=== PATIENT | male | born 1950 | race Hispanic/Latino ===

== ENCOUNTER 2017-03-05 05:00 | Inpatient (IN) | payer MEDICARE, MEDICAID ==
[2017-03-05 05:16] VITALS: BMI 22.2
--- NOTE | 2017-03-05 05:32 | ED PDOC ---
Arrival/HPI - General Chief Complaint: Trauma Time Seen by Provider: 03/05/17 05:10 Historian: Patient, EMS - History of Present Illness Narrative History of Present Illness (Text): 03/05/17 05:30 Mikel Love is a 67 year old male, whose past medical history includes rheumatoid arthritis, CAD s/p stents, CO, COPD, and atrial fibrillation, who presents to the emergency department brought in by EMS s/p mechanical fall. Patient states he was walking home from the bar when he slipped and fell, injuring his right hip tonight. Patient notes he has a history of bilateral hip replacement in the past. Patient states he is unable to move his right leg at the hip. Patient also sustained abrasions to hands and knees. Patient denies any head injury, loss of consciousness, fever, chills, chest pain, shortness of breath, abdominal pain, nausea, vomiting, diarrhea, urinary symptoms, back pain , neck pain, headache, dizziness, or any other complaints. PMD: Dr. Erika Rojas Time/Duration: Other (tonight) Symptom Onset: Sudden Symptom Course: Unchanged Activities at Onset: Light Context: Walking, Slipped Past Medical History - Provider Review Nursing Documentation Reviewed: Yes - Infectious Disease Hx of Infectious Diseases: None - Musculoskeletal/Rheumatological Hx Falls: Yes Hx Rheumatoid Arthritis: Yes - Psychiatric Hx Substance Use: No - Surgical History Hx Appendectomy: Yes Hx Joint Replacement: Yes (B/L hips) Other/Comment: Back sx - Anesthesia Hx Anesthesia: Yes Hx Anesthesia Reactions: No Hx Malignant Hyperthermia: No - Suicidal Assessment Feels Threatened In Home Enviroment: No Family/Social History - Physician Review Nursing Documentation Reviewed: Yes Family/Social History: No Known Family HX Smoking Status: Heavy Smoker > 10 Cigarettes Daily Hx Alcohol Use: Yes Frequency of alcohol use: Daily Hx Substance Use: No Allergies/Home Meds Allergies/Adverse Reactions: Allergies No Known Allergies Allergy (Verified 03/05/17 05:21) Home Medications: Home Meds Medication Instructions Recorded Confirmed Methotrexate [Methotrexate] 20 mg PO WED 10/17/15 10/17/15 Review of Systems - Physician Review All systems were reviewed & negative as marked: Yes - Review of Systems Constitutional: Normal. absent: Fevers Eyes: Normal ENT: Normal Respiratory: Normal. absent: SOB, Cough Cardiovascular: Normal. absent: Chest Pain Gastrointestinal: Normal. absent: Abdominal Pain, Diarrhea, Nausea, Vomiting Genitourinary Male: Normal. absent: Dysuria, Frequency, Hematuria, Urinary Output Changes Musculoskeletal: Normal. absent: Back Pain, Neck Pain Skin: Normal. absent: Rash Neurological: Normal. absent: Headache, Dizziness Endocrine: Normal Hemo/Lymphatic: Normal Psychiatric: Normal Physical Exam Vital Signs Reviewed: Yes Vital Signs Temp Pulse Resp BP Pulse Ox 03/05/17 15:00 98 F 96 H 20 132/71 98 03/05/17 13:00 98.2 F 96 H 19 125/75 96 03/05/17 12:56 98 F 100 H 20 127/73 03/05/17 09:27 98 F 100 H 20 127/73 98 03/05/17 07:22 98 F 99 H 20 115/65 96 03/05/17 05:41 100 H 16 116/74 95 03/05/17 05:28 97.8 F Temperature: Afebrile Blood Pressure: Normal Pulse: Regular Respiratory Rate: Normal Appearance: Positive for: Well-Appearing, Non-Toxic, Comfortable Pain Distress: None Mental Status: Positive for: Alert and Oriented X 3 - Systems Exam Head: Present: Atraumatic, Normocephalic Pupils: Present: PERRL Extroacular Muscles: Present: EOMI Conjunctiva: Present: Normal Mouth: Present: Moist Mucous Membranes Neck: Present: Normal Range of Motion Respiratory/Chest: Present: Clear to Auscultation, Good Air Exchange. No: Respiratory Distress, Accessory Muscle Use Cardiovascular: Present: Regular Rate and Rhythm, Normal S1, S2. No: Murmurs Abdomen: Present: Normal Bowel Sounds. No: Tenderness, Distention, Peritoneal Signs Upper Extremity: Present: Normal ROM, NORMAL PULSES, Neurovascularly Intact, Capillary Refill < 2s, Other (Superficial abrasions to hands and knees). No: Cyanosis, Edema, Tenderness, Swelling, Erythema, Temperature Abnormalties, Deformity Lower Extremity: Present: NORMAL PULSES, Tenderness (Discomfort at any attempt at right hip flexion). No: Edema Neurological: Present: GCS=15, CN II-XII Intact, Speech Normal Skin: Present: Warm, Dry, Normal Color. No: Rashes Psychiatric: Present: Alert, Oriented x 3, Normal Insight, Normal Concentration Medical Decision Making ED Course and Treatment: 03/05/17 05:30 Impression: 67 year old male presents s/p mechanical fall, unable to move right hip tonight. Plan: -- EKG -- XR Hips -- Labs -- IV fluids -- Reassess and disposition Prior Visits: Notes and results from previous visits were reviewed. Progress Notes: Reviewed EKG, sinus tachycardia at 103 bpm. Inferior infarct. Non-specific ST/T wave changes. Unchanged from previous. 03/05/17 07:00 Case was d/w covering .Accepts to her service.Requested orthopedist on consult. - Lab Interpretations Lab Results: 03/05/17 05:35 03/05/17 05:35 Lab Results 03/05/17 05:35: WBC 19.9 H D, RBC 4.68, Hgb 16.6, Hct 46.4, MCV 99.1, MCH 35.5 H , MCHC 35.8, RDW 14.5, Plt Count 347, MPV 9.0, PT 11.4, INR 1.06, APTT 29.2, Sodium 135, Potassium 4.2, Chloride 100, Carbon Dioxide 19 L, Anion Gap 20, BUN 8, Creatinine 0.7, Est GFR ( Amer) > 60, Est GFR (Non-Af Amer) > 60, Random Glucose 120 H, Calcium 8.6, Total Bilirubin 0.4, AST 34, ALT 28, Alkaline Phosphatase 139 H, Total Protein 8.3, Albumin 4.3, Globulin 4.1, Albumin/Globulin Ratio 1.0 L, Alcohol, Quantitative 269 H I have reviewed the lab results: Yes - RAD Interpretation Narrative RAD Interpretations (Text): 03/05/17 07:00 Hip/pelvis-No acute process Radiology Orders: 03/05/17 05:36 Hip Bi with Pelvis Fall Protocol [HIP MIN 2V W/ PELVIS QASIM] [RAD] Stat Glass Technologist: ED Physician - Medication Orders Current Medication Orders: Famotidine (Pepcid) 20 mg IVP DAILY ADELA Last Admin: 03/05/17 11:41 Dose: 20 MG IVP Administration Document 03/05/17 11:41 GMI (Rec: 03/05/17 11:42 GMI [id number]) Charges for Administration # of IVP Administrations 1 Sodium Chloride (Sodium Chloride 0.9%) 1,000 mls @ 100 mls/hr IV .Q10H ADELA Last Admin: 03/05/17 07:03 Dose: 100 MLS/HR eMAR Start Stop Document 03/05/17 07:03 RE (Rec: 03/05/17 07:03 RE [facility] [place] Intravenous Solution Start Date 03/04/17 Start Time 05:30 End Date 03/05/17 End time 09:38 Total Infusion Time 1688 Multivitamins/Vitamin C 10 ml/Thiamine HCl 100 mg/ Folic Acid 1 mg/ Dextrose 1, 011.2 mls @ 100 mls/hr IV .Q10H7M ONE Stop: 03/05/17 18:35 Last Admin: 03/05/17 09:38 Dose: 100 MLS/HR eMAR Start Stop Document 03/05/17 09:38 GMI (Rec: 03/05/17 09:39 [id number]) Intravenous Solution Start Date 03/05/17 Start Time 09:39 Morphine Sulfate (Morphine) 2 mg IVP Q4 PRN PRN Reason: Pain, moderate (4-7) Last Admin: 03/05/17 15:57 Dose: 2 MG MAR Pain Assessment Document 03/05/17 15:57 RECYCLABLE MATERIALS COLLECTOR (Rec: 03/05/17 15:57 RECYCLABLE MATERIALS COLLECTOR [facility] [id number] Pain Reassessment Is this a pain reassessment? Yes Sleep Is patient sleeping during reassessment? No Presence of Pain Presence of Pain Yes Pain Scale Used Pain Scale Used Numeric Location Left, Right or Bilateral Right Pain Location Body Site Hip Description Description Acute Intensity of Pain at present 8 IVP Administration Document 03/05/17 15:57 RECYCLABLE MATERIALS COLLECTOR (Rec: 03/05/17 15:57 RECYCLABLE MATERIALS COLLECTOR [facility] [id number] Charges for Administration # of IVP Administrations 1 Sennosides (Senokot Tab) 8.6 mg PO DAILY ADELA Last Admin: 03/05/17 11:24 Dose: Not Given Non-Admin Reason: Patient Refused Discontinued Medications Docusate Sodium (Colace) 100 mg PO STAT STA Stop: 03/05/17 08:32 Last Admin: 03/05/17 09:43 Dose: 100 MG Stool Assessment Document 03/05/17 09:43 GMI (Rec: 03/05/17 09:43 GMI [id number]) Pattern Bowel Pattern Normal Bowel Movement Frequency Daily Description Stool Characteristics Soft Formed - Scribe Statement The provider has reviewed the documentation as recorded by the Jose Escalante Provider Attestation: All medical record entries made by the Prafulibe were at my direction and personally dictated by me. I have reviewed the chart and agree that the record accurately reflects my personal performance of the history, physical exam, medical decision making, and the department course for this patient. I have also personally directed, reviewed, and agree with the discharge instructions and disposition. Disposition/Present on Arrival - Present on Arrival Any Indicators Present on Arrival: No History of DVT/PE: No History of Uncontrolled Diabetes: No Urinary Catheter: No History of Decub. Ulcer: No History Surgical Site Infection Following: None - Disposition Have Diagnosis and Disposition been Completed?: No Diagnosis: Fall, Injury of right hip, Alcohol intoxication, Inability to ambulate due to hip Disposition: HOSPITALIZED Disposition Time: 07:00 Patient Plan: Observation Patient Problems: Current Active Problems Problem Status Diagnosed Alcohol intoxication Acute Fall Acute Inability to ambulate due to hip Acute Injury of right hip Acute Condition: STABLE
[2017-03-05 05:51] LABS: HEMATOCRIT 46.4 % (42.0-52.0); MEAN CELL VOLUME 99.1 fL (80.0-105.0); MEAN CORPUSCULAR HEMOGLOBIN 35.5 pg (25.0-35.0); MEAN CORPUSCULAR HGB CONC 35.8 g/dl (31.0-37.0); RED CELL DISTRIBUTION WIDTH 14.5 % (11.5-14.5); WHITE BLOOD COUNT 19.9 10^3/ul (4.5-11.0)
[2017-03-05 06:03] LABS: ALKALINE PHOSPHATASE 139 U/L (38-133); ALT/SGPT 28 U/L (7-56); AST/SGOT 34 U/L (15-59); BILIRUBIN,TOTAL 0.4 mg/dL (0.2-1.3); BLOOD UREA NITROGEN 8 mg/dL (7-21); CALCIUM 8.6 mg/dL (8.4-10.5); CARBON DIOXIDE 19 mmol/L (21-33); CHLORIDE 100 mmol/L (98-107); GFR AFRICAN-AMERICAN > 60; GLUCOSE,RANDOM 120 mg/dL (70-110); POTASSIUM 4.2 mmol/L (3.6-5.0); SODIUM 135 mmol/L (132-148); TOTAL PROTEIN 8.3 g/dL (5.8-8.3)
[2017-03-05 06:04] LABS: INR 1.06 (0.93-1.08); PARTIAL THROMBOPLASTIN TIME 29.2 Seconds (23.7-30.8)
[2017-03-05] MEDS: Sodium Chloride 0.9% 1,000 ML IV SCH (07:03)
[2017-03-05] MEDS ORDERED: Multivitamin (MVI) 10 ML, Thiamine 100 MG, Folic Acid 1 MG in Dextrose 5% In Water 1,00... IV ONE (08:29)
--- NOTE | 2017-03-05 08:57 | RAD ---
PROCEDURE: Pelvis and right hip HISTORY: right hip injury COMPARISON: TECHNIQUE: Three views FINDINGS: Bilateral hip prostheses are seen in satisfactory alignment. There is no fracture or loosening. IMPRESSION: Negative study
[2017-03-05] MEDS: Morphine 2 mg/ml ISec IVP PRN ×3 (09:44→22:23)
--- NOTE | 2017-03-05 12:14 | CARD ---
APPROVED REPORT EKG Measurement Heart [id number] <Conclusion> Sinus tachycardia Inferior infarct, age undetermined Abnormal ECG
--- NOTE | 2017-03-05 23:47 | CP.PCM.HP ---
History of Present Illness - History of Present Illness History of Present Illness: Mr. Love is a 67 old male admitted post fall. He is complaining of right sided hip pain. X ray did not show any fracture. He was found to be ontoxicated with ETOH. Blood Alcohol level was high in ER. he has reheumatoid arthritis, takes methotrexate. Stable condition. H/O CAD, NH, stable. he has leukocytosis with elevated WC 19k. He has high WC since 2015. Bilateral hip replacement, pain right hip. Present on Admission - Present on Admission Any Indicators Present on Admission: No Review of Systems - Constitutional Constitutional: Fatigue, Frequent Falls, Weakness - EENT Eyes: absent: As Per HPI, Blind Spots, Blurred Vision, Change in Vision, Decreased Night Vision, Diplopia, Discharge, Dry Eye, Exophthalmos, Floaters, Irritation, Itchy Eyes, Loss of Peripheral Vision, Pain, Photophobia, Requires Corrective Lenses, Sees Flashes, Spots in Vision, Tunnel Vision, Other Visual Disturbances, Loss of Vision, Other Ears: absent: As Per HPI, Decreased Hearing, Ear Discharge, Ear Pain, Tinnitus, Abnormal Hearing, Disequilibrium, Dizziness, Other Nose/Mouth/Throat: absent: As Per HPI, Epistaxis, Nasal Congestion, Nasal Discharge, Nasal Obstruction, Nasal Trauma, Nose Pain, Post Nasal Drip, Sinus Pain, Sinus Pressure, Bleeding Gums, Change in Voice, Dental Pain, Dry Mouth, Dysphagia, Halitosis, Hoarsness, Lip Swelling, Mouth Lesions, Mouth Pain, Odynophagia, Sore Throat, Throat Swelling, Tongue Swelling, Facial Pain, Neck Pain, Neck Mass, Other - Cardiovascular Cardiovascular: As Per HPI - Respiratory Respiratory: absent: As Per HPI, Cough, Dyspnea, Hemoptysis, Dyspnea on Exertion , Wheezing, Snoring, Stridor, Pain on Inspiration, Chest Congestion, Excessive Mucous Production, Change in Mucous Color, Pain with Coughing, Other - Gastrointestinal Gastrointestinal: absent: As Per HPI, Abdominal Pain, Belching, Bloating, Change in Bowel Habits, Change in Stool Character, Coffee Ground Emesis, Constipation, Cramping, Diarrhea, Dyspepsia, Dysphagia, Early Satiety, Excessive Flatus, Fecal Incontinence, Heartburn, Hematemesis, Hematochezia, Loose Stools, Melena, Nausea, Odynophagia, Temesmus, Vomiting, Other - Genitourinary Genitourinary: absent: As Per HPI, Change in Urinary Stream, Difficulty Urinating, Dysuria, Flank Pain, Hematuria, Pyuria, Nocturia, Urinary Incontinence, Urinary Frequency, Urinary Hesitance, Urinary Urgency, Voiding Freq/Small Amts, Freq UTI, Hx Renal/Bladder Calculi, Hx /Renal Surgery, Bladder Distension, Other - Musculoskeletal Musculoskeletal: absent: As Per HPI, Abnormal Gait, Arthralgias, Atrophy, Back Pain, Deformity, Joint Swelling, Limited Range of Motion, Loss of Height, Muscle Cramps, Muscle Weakness, Myalgias, Neck Pain, Numbness, Radiating Pain into Limb, Stiffness, Tingling, Other - Integumentary Integumentary: absent: As Per HPI, Acne, Alopecia, Bleeding Lesions, Change in Hair, Change in Nails, Change in Pigmentation, Changing Lesions, Dry Skin, Erythema, Furuncle, Hirsutism, Lesions, New Lesions, Non-Healing Lesions, Photosensitivity, Pruritus, Rash, Skin Pain, Skin Ulcer, Sores, Striae, Swelling , Unusual Bruising, Wounds, Jaundice, Other - Neurological Neurological: absent: As Per HPI, Abnormal Gait, Abnormal Hearing, Abnormal Movements, Abnormal Speech, Behavioral Changes, Burning Sensations, Confusion, Convulsions, Disequilibrium, Dizziness, Numbness, Focal Weakness, Frequent Falls , Headaches, Lack of Coordination, Loss of Vision, Memory Loss, Paresthesias, Radicular Pain, Restless Legs, Sensory Deficit, Syncope, Tingling, Tremor, Vertigo, Weakness, Other Visual Disturbances, Other - Psychiatric Psychiatric: absent: As Per HPI, Abnormal Sleep Pattern, Anhedonia, Anxiety, Auditory Hallucinations, Behavioral Changes, Change in Appetite, Change in Libido, Confusion, Depression, Difficulty Concentrating, Hallucinations, Homicidal Ideation, Hopelessness, Irritability, Memory Loss, Mood Swings, Panic Attacks, Paranoia, Suicidal Ideation, Visual Hallucinations, Tactile Hallucinations, Other - Endocrine Endocrine: absent: As Per HPI, Change in Body Appearance, Change in Libido, Cold Intolorance, Deepening of Voice, Excessive Sweating, Fatigue, Flushing, Heat Intolorance, Increase in Ring/Shoe/Hat Size, Palpitations, Polydipsia, Polyphagia, Polyuria, Other - Hematologic/Lymphatic Hematologic: As Per HPI Past Patient History - Infectious Disease Hx of Infectious Diseases: None - Past Medical History & Family History Past Medical History?: Yes Past Family History: Reviewed and not pertinent - Past Social History Smoking Status: Smoker Currrent Status Unknown - CARDIAC Hx Cardiac Disorders: Yes Hx Atrial Fibrillation: Yes - PULMONARY Hx Chronic Obstructive Pulmonary Disease (COPD): Yes - MUSCULOSKELETAL/RHEUMATOLOGICAL Hx Falls: Yes Hx Rheumatoid Arthritis: Yes - PSYCHIATRIC Hx Substance Use: No - SURGICAL HISTORY Hx Appendectomy: Yes Hx Joint Replacement: Yes (B/L hips) Other/Comment: Back sx - ANESTHESIA Hx Anesthesia: Yes Hx Anesthesia Reactions: No Hx Malignant Hyperthermia: No Meds Allergies/Adverse Reactions: Allergies Allergy/AdvReac Type Severity Reaction Status Date / Time No Known Allergies Allergy Verified 03/05/17 05:21 Physical Exam - Constitutional Appears: Non-toxic - Head Exam Head Exam: ATRAUMATIC, NORMAL INSPECTION, NORMOCEPHALIC - Eye Exam Eye Exam: Normal appearance Pupil Exam: NORMAL ACCOMODATION - ENT Exam ENT Exam: Mucous Membranes Moist - Neck Exam Neck exam: Positive for: Normal Inspection - Respiratory Exam Respiratory Exam: Clear to Auscultation Bilateral - Cardiovascular Exam Cardiovascular Exam: REGULAR RHYTHM, +S1, +S2 - GI/Abdominal Exam GI & Abdominal Exam: Normal Bowel Sounds, Soft - Extremities Exam Extremities exam: Positive for: normal inspection - Back Exam Back exam: NORMAL INSPECTION - Neurological Exam Neurological exam: Alert, CN II-XII Intact, Normal Gait, Oriented x3 - Psychiatric Exam Psychiatric exam: Normal Affect - Skin Skin Exam: Dry, Normal Color, Warm Results - Vital Signs Recent Vital Signs: Last Vital Signs Temp 98.3 F 03/05/17 18:00 Pulse 78 03/05/17 18:00 Resp 20 03/05/17 18:00 BP 128/73 03/05/17 18:00 Pulse Ox 98 03/05/17 15:00 - Labs Result Diagrams: 03/05/17 05:35 03/05/17 05:35 - Impressions Impression: Meds: methotrexate weekly. Assessment & Plan - Assessment and Plan (Free Text) Assessment: 1. Rt hip injury 2. Leukocytosis 3. ETOH intoxucation 4. CAD 5. Hypertension Plan: Rt. HIp injury. Xray no fracture. ortho consult with Dr. Doherty requested. Pain control with MSO4 2 mg IV Q4 hrs. ETOH intoxication : Banana bag, 1 L at 100 cc/hr. leukocytosis : since 2015 as per records on [place]. He need further evaluation to rule out Chronic leukemia. pepcid 20 mg IV daily. Discussed with the patient. Discussed with ED physician.
[2017-03-06 07:29] LABS: ADD MANUAL DIFF? NO
[2017-03-06 07:37] LABS: BASO # 0.02 K/mm3 (0.0-2.0); BASO % 0.3 % (0.0-3.0); EOS # 0.1 (0.0-0.7); GRAN % 74.9 % (50.0-68.0); HEMATOCRIT 36.4 % (42.0-52.0); LYMPH # 1.1 (1.2-3.4); LYMPH % 14.5 % (22.0-35.0); MEAN CELL VOLUME 97.8 fL (80.0-105.0); MEAN CORPUSCULAR HEMOGLOBIN 33.3 pg (25.0-35.0); MEAN CORPUSCULAR HGB CONC 34.1 g/dl (31.0-37.0); MEAN PLATELET VOLUME 8.8 fl (7.0-11.0); MONO # 0.7 (0.1-0.6); MONO % 9.3 % (1.0-6.0); PLATELET COUNT 263 10^3/uL (120.0-450.0); RED CELL DISTRIBUTION WIDTH 14.5 % (11.5-14.5); WHITE BLOOD COUNT 7.9 10^3/ul (4.5-11.0)
[2017-03-06 07:46] LABS: BLOOD UREA NITROGEN 6 mg/dL (7-21); CALCIUM 7.9 mg/dL (8.4-10.5); CARBON DIOXIDE 24 mmol/L (21-33); CHLORIDE 104 mmol/L (95-110); GFR AFRICAN-AMERICAN > 60; GLUCOSE,RANDOM 89 mg/dL (70-110); POTASSIUM 3.7 mmol/L (3.6-5.0); SODIUM 132 mmol/L (132-148)
[2017-03-06] MEDS: Morphine 2 mg/ml ISec IVP PRN ×3 (07:49→22:21)
--- NOTE | 2017-03-06 08:37 | CON ---
DATE: 03/05/2017 REASON FOR CONSULTATION: Right hip pain. HISTORY OF PRESENT ILLNESS: This is a 67-year-old gentleman who presented status post fall with righ t hip pain. PAST MEDICAL HISTORY: Significant for a right total hip replacement done approximately 3-1/2 years a go. The patient states that he normally ambulates with a cane. He denies any other injuries. He sa ys he does have a history of right knee arthritis as well and most likely will need a knee replacemen t. PHYSICAL EXAMINATION: GENERAL: This is a gentleman in no apparent distress. He is awake, alert and oriented x 3. EXTREMITIES: Evaluation of the right hip shows that he does have some tenderness to palpation along the right greater trochanteric region. He has some mild pain with passive internal and external rota tion of the hip. His thigh is otherwise soft and nontender. His limb lengths are approximately equa l. He is tolerating active range of motion, some gentle passive range of motion of the knee without significant pain. He has full range of motion of the ankle without any pain. Grossly, he is neurolo gically intact. His foot is well perfused. X-rays of the right hip show a right total hip replacement. There is no evidence of any dislocation. There appeared to be a fracture of the greater trochanter. The distal stem of the femoral componen t appears to be well fixed. IMPRESSION: Right periprosthetic hip fracture. PLAN: At this point, we discussed the treatment options. For now, given that the component appears to be well fixed, I recommended protective weightbearing and serial radiographic followup to see if t here is any evidence of implant instability or worsening of the fracture. I did explain to him that should the fracture propagate or the implant loosen, that revision total hip surgery might be warrant ed and he understands this. For now, he is going to get admitted. We are going to have the physical therapy service see him for some partial weightbearing with a walker. I will follow up with repeat x-rays. Jet Patricio MD cc: [id number] TT: 03/05/2017 10:32:18 Confirmation # [id number] Dictation # [id number] en
--- NOTE | 2017-03-06 09:32 | PN ---
DATE: 03/06/2017 A 67-year-old white male with long history of severe rheumatoid arthritis with degenerative disease s tatus post bilateral hip replacements and back surgery for vertebral body compression fractures treat ed by Dr. Davidson, a neurosurgeon, with a cage and screws. The patient had a recent fall, landing on his right hip. Has a hairline fracture of the trochanter. The prosthesis placement is good. He was seen in consultation by ortho. He still has severe difficulty in any movement on the right leg. He has normal sensation. He has normal reflexes and Babinskis are downgoing bilaterally. However, bec ause of severe pain, he is unable to move the right hip and the right knee. Also feels that there is possible protrusion in the lumbosacral spine from his previous surgery. The patient will undergo a CT of the lumbosacral spine today to look at the placement of his cage. PHYSICAL EXAMINATION: VITAL SIGNS: Stable. CHEST: Clear to auscultation and percussion. HEART: Reveals sinus rhythm. 12-POINT REVIEW OF SYSTEMS: Unremarkable except for pain and inability to move the right hip and rig ht knee. IMPRESSION: This is a 67-year-old white male with long history of rheumatoid arthritis, bilateral hi p prosthesis, lumbosacral spine compression with fixation, status post fall and hemiparesis of the ri ght lower extremity. Daniel Rojas MD cc: [id number] TT: 03/06/2017 09:32:05 Confirmation # [id number] Dictation # [id number] mn
--- NOTE | 2017-03-06 13:50 | CT ---
PROCEDURE: CT Lumbar Spine without contrast HISTORY: fall / rt leg paresis COMPARISON: CT of the chest abdomen and pelvis 07/10/2015 TECHNIQUE: Axial computed tomography images were obtained of the lumbar spine without the use of intravenous contrast. Coronal and sagittal reformatted images were created and reviewed. Radiation dose: Total exam DLP = 334 mGy-cm. This CT exam was performed using one or more of the following dose reduction techniques: Automated exposure control, adjustment of the mA and/or kV according to patient size, and/or use of iterative reconstruction technique. FINDINGS: VERTEBRAE: There is a severe compression fracture of L2. There has been a laminectomy at this level. Pedicle screws and rods are seen at L1, L2 and L3. No change in appearance compared to prior study DISCS/SPINAL CANAL/NEURAL FORAMINA: L1-2: Unremarkable. L2-3: Unremarkable. L3-4: Moderate disc bulge L4-5: Moderate disc bulge L5-S1: Left-sided osteophytes narrowing the left L5 neural foramen PARASPINAL SOFT TISSUES: Unremarkable. OTHER FINDINGS: None. IMPRESSION: Status post fusion and laminectomy at L1, L2 and L3. Severe compression fracture of L2 unchanged
[2017-03-06] MEDS: Sodium Chloride 0.9% 1,000 ML IV SCH (16:43)
[2017-03-07] MEDS: Sodium Chloride 0.9% 1,000 ML IV SCH ×2 (05:18→14:33)
[2017-03-07] MEDS: Morphine 2 mg/ml ISec IVP PRN ×2 (07:48→18:54)
[2017-03-07] MEDS: Multiple Vitamins Oral Solution PO SCH (16:51)
[2017-03-08] MEDS: Sodium Chloride 0.9% 1,000 ML IV SCH ×2 (03:11→12:04)
[2017-03-08] MEDS: Morphine 2 mg/ml ISec IVP PRN ×2 (06:13→15:43)
[2017-03-08 06:38] LABS: MEAN CELL VOLUME 100.6 fL (80.0-105.0); MEAN CORPUSCULAR HEMOGLOBIN 33.7 pg (25.0-35.0); MEAN CORPUSCULAR HGB CONC 33.5 g/dl (31.0-37.0); RED CELL DISTRIBUTION WIDTH 14.4 % (11.5-14.5); WHITE BLOOD COUNT 5.9 10^3/ul (4.5-11.0)
[2017-03-08 06:52] LABS: ALB/GLOB RATIO 0.9 (1.1-1.8); ALKALINE PHOSPHATASE 81 U/L (38-133); ALT/SGPT 27 U/L (7-56); AST/SGOT 32 U/L (15-59); BILIRUBIN,TOTAL 0.7 mg/dL (0.2-1.3); BLOOD UREA NITROGEN 7 mg/dL (7-21); CALCIUM 7.9 mg/dL (8.4-10.5); CARBON DIOXIDE 25 mmol/L (21-33); CHLORIDE 107 mmol/L (95-110); GFR AFRICAN-AMERICAN > 60; GLUCOSE,RANDOM 84 mg/dL (70-110); POTASSIUM 3.9 mmol/L (3.6-5.0); SODIUM 138 mmol/L (132-148); TOTAL PROTEIN 5.6 g/dL (5.8-8.3)
--- NOTE | 2017-03-08 08:45 | PN ---
DATE: 03/08/2017 SUBJECTIVE: A 67-year-old white male with history of severe rheumatoid arthritis, bilateral hip repl acement, fusion and laminectomy of the lumbosacral spine, status post fall. The patient had high alc ohol level, contusion of the right hip. X-ray showed possible hairline fracture. The patient also h as a productive cough and some rales in the right ____ on examination. He did start physical therapy and was able to walk with a walker yesterday with physical therapy and sit in the chair for many char rs. The patient is improved as far as his physical function. He is on cardiac medications with hist ory of cardiac arrest and stent placement approximately 2 years ago. He also is being treated for po ssible alcohol withdrawal syndrome with IV fluids, thiamine, folic acid, and Librium. VITAL SIGNS: Stable. 12-POINT REVIEW OF SYSTEMS: Unremarkable except for pain in the right hip and a productive cough. The patient will have repeat x-rays today, evaluation for TCU, and a chest x-ray. Daniel Rojas MD cc: [id number] TT: 03/08/2017 08:44:36 Confirmation # [id number] Dictation # [id number] adelita
--- NOTE | 2017-03-08 10:26 | CP.PCM.PN ---
Subjective - Date & Time of Evaluation Date of Evaluation: 03/08/17 Time of Evaluation: 10:25 - Subjective Subjective: Pt feeling better. Pt has been out of bed and has ambulated short distances. Pt is partial weightbearing on RLE. On xam, pt neuro intact tenderness over lateral aspect of proximal femur Repeat xrays of hip pending Will follow up when complete Objective - Vital Signs/Intake and Output Vital Signs (last 24 hours): Temp Pulse Resp BP Pulse Ox 98.2 F 66 20 103/62 95 03/08/17 07:22 03/08/17 07:22 03/08/17 07:22 03/08/17 07:22 03/08/17 07:22 Intake and Output: 03/08/17 03/08/17 06:59 18:59 Intake Total 1860 Output Total 700 Balance 1160 - Medications Medications: Current Medications Aspirin (Ecotrin) 81 mg PO DAILY [facility] Last Admin: 03/07/17 16:48 Dose: 81 mg Atorvastatin Calcium (Lipitor) 40 mg PO DIN [facility] Last Admin: 03/07/17 16:49 Dose: 40 mg Carvedilol (Coreg) 3.125 mg PO BID [facility] Last Admin: 03/07/17 16:49 Dose: 3.125 mg Chlordiazepoxide (Librium) 25 mg PO Q8 [facility] PRN Reason: Protocol Last Admin: 03/08/17 06:09 Dose: 25 mg Clopidogrel Bisulfate (Plavix) 75 mg PO DAILY [facility] Last Admin: 03/07/17 16:50 Dose: 75 mg Famotidine (Pepcid) 20 mg PO DAILY [facility] Last Admin: 03/07/17 10:11 Dose: 20 mg Folic Acid (Folic Acid) 1 mg PO DAILY [facility] Last Admin: 03/07/17 16:49 Dose: 1 mg Sodium Chloride (Sodium Chloride 0.9%) 1,000 mls @ 100 mls/hr IV .Q10H [facility] Last Admin: 03/08/17 03:11 Dose: 100 mls/hr Lorazepam (Ativan) 1 mg PO TID PRN; Protocol PRN Reason: Symptoms of alcohol withdrawl Morphine Sulfate (Morphine) 2 mg IVP Q4 PRN PRN Reason: Pain, moderate (4-7) Last Admin: 03/08/17 06:13 Dose: 2 mg Multivitamins/Vitamin C (Multi-Delyn Liquid) 15 ml PO DAILY [facility] Last Admin: 03/07/17 16:51 Dose: 15 ml Ramipril (Altace) 5 mg PO DAILY [facility] Last Admin: 03/07/17 16:50 Dose: 5 mg Sennosides (Senokot Tab) 8.6 mg PO DAILY [facility] Last Admin: 03/07/17 10:11 Dose: 8.6 mg Thiamine HCl (Vitamin B1 Tab) 50 mg PO DAILY [facility] Last Admin: 03/07/17 16:50 Dose: 50 mg - Labs Labs: 03/08/17 06:00 03/08/17 06:00 PT 11.4 Seconds (9.9-11.8) 03/05/17 05:35 INR 1.06 (0.93-1.08) 03/05/17 05:35 APTT 29.2 Seconds (23.7-30.8) 03/05/17 05:35
--- NOTE | 2017-03-08 11:09 | RAD ---
HISTORY: cough COMPARISON: 07/07/2015 TECHNIQUE: Chest PA and lateral FINDINGS: LUNGS: There is chronic scarring in the right lung. The left lung is clear. PLEURA: No significant pleural effusion identified. No pneumothorax apparent. CARDIOVASCULAR: Normal. OSSEOUS STRUCTURES: No significant abnormalities. VISUALIZED UPPER ABDOMEN: Normal. OTHER FINDINGS: None. IMPRESSION: No active disease.
[2017-03-08] MEDS: Multiple Vitamins Oral Solution PO SCH (11:58)
--- NOTE | 2017-03-08 12:51 | RAD ---
PROCEDURE: Pelvis and right hip HISTORY: check eval hardward hip COMPARISON: TECHNIQUE: Three views FINDINGS: Bilateral hip replacements. Normal alignment. No acute fracture or loosening IMPRESSION: Negative study
[2017-03-08] MEDS ORDERED: Multi Vitamins 15 mL UD Oral Solution PO SCH (14:20)
[2017-03-08 16:32] VITALS: TEMP 98.1
[2017-03-08 17:32] VITALS: BP 104/58
[2017-03-08 18:10] VITALS: PULSE 72; RESP 16; O2SAT 99
--- NOTE | 2017-03-09 10:02 | DS ---
The patient is a 67-year-old white male, history of rheumatoid arthritis, CAD status post stent, admi tted to the hospital after a fall, contusion of the right hip, history of bilateral hip replacement a nd laminectomy and fusion of the lumbosacral spine. X-rays did not show any worsening of his disease . The patient initially was unable to move. However, with physical therapy, he was able to stand an d sit in a chair and use a walker. The x-rays and the CT of the back did not show any displacement o f his apparatus of the lumbosacral spine or of either hips, possible hairline fracture of the right t rochanter. The patient was started on physical therapy and occupational therapy. He also was found to have an elevated alcohol level in the hospital and patient was eventually treated with thiamine an d Librium and folic acid and fluids. The patient eventually was able to be transferred to [facility]. FINAL DISCHARGE DIAGNOSES: Right hip contusion, hairline fracture of the right trochanter, rheumatoi d arthritis, alcohol induced fall. Daniel Rojas MD cc: [id number] TT: 03/09/2017 10:01:43 en
== END 2017-03-08 21:15 | DRG 536 ==
LOC: ED 05:00 → UNDOADMOB 07:19 → ERH 07:19 → 2RSO 15:10 → UNDOADMOB 03-06 13:00 → 5RNO 03-06 13:00 → 2RSO 03-06 13:00 → ERH 03-06 13:00 → INTOOBSV 03-06 14:43 → OBSVTOIN 03-06 14:43 → 2RSO 03-06 17:58 → 5RNO 03-06 17:58
PROVIDERS: ADMIT Internal Medicine Medical Oncology; ATTEND Internal Medicine Medical Oncology
DX: S72.111A Displaced fracture of greater trochanter of right femur, initial encounter for closed fracture (principal); M97.01XA Periprosthetic fracture around internal prosthetic right hip joint, initial encounter; W01.0XXA Fall on same level from slipping, tripping and stumbling without subsequent striking against object, initial encounter; F10.129 Alcohol abuse with intoxication, unspecified; I48.91 Unspecified atrial fibrillation; G81.90 Hemiplegia, unspecified affecting unspecified side; J44.9 Chronic obstructive pulmonary disease, unspecified; S60.511A Abrasion of right hand, initial encounter; D72.829 Elevated white blood cell count, unspecified; I10 Essential (primary) hypertension; S70.01XA Contusion of right hip, initial encounter; I25.10 Atherosclerotic heart disease of native coronary artery without angina pectoris; M06.9 Rheumatoid arthritis, unspecified; S60.512A Abrasion of left hand, initial encounter; M17.11 Unilateral primary osteoarthritis, right knee; Z96.643 Presence of artificial hip joint, bilateral; Y92.488 Other paved roadways as the place of occurrence of the external cause; Y93.01 Activity, walking, marching and hiking; Y99.8 Other external cause status; Z95.5 Presence of coronary angioplasty implant and graft